=== PATIENT | female | born 1975 | race Caucasian/White ===

== ENCOUNTER 2019-09-26 08:35 | Outpatient (RCR) | payer MEDICARE, OTHER, SELFPAY ==
[2019-08-29 09:04] VITALS: BMI 18.1
== END 2019-11-25 08:56 | disposition home or self-care (01) ==
LOC: ANHWOC 08:35
PROVIDERS: PCP Internal Medicine; Visit Provider Internal Medicine
DX: L89.319 Pressure ulcer of right buttock, unspecified stage (principal)
CPT/HCPCS: 99212; G0463